=== PATIENT | female | born 2000 | race Caucasian/White ===

== ENCOUNTER 2020-08-17 04:16 | Emergency (ER) | payer OTHER ==
[~2020-08-17] VITALS: Ht 157.5 cm; Wt 56.9 kg
--- NOTE | 2020-08-17 04:32 | PHYS DOC ---
General Adult HPI: HPI: ".. I started having some vaginal bleeding after sex two days ago... it now more.. and I am having cramping.. and some back pain with it.. it is my lst ... I have not seen a Ob /rebar worker yet... they will not send you at [facility].. 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 Patient had approximately 5 tests at home and they were all positive. Patient is taking vitamins. Bleeding started after sexu al intercourse 2 days ago. Bleeding has increased to approximately 3-4 pads a day. Cramping and back pain is also increased. Patient denies any trauma other than coitus. No history of coagulopathy with her family members. This is her first . Has had approximately 10 lifetime sex partners, no history of STDs. No recent travel. No specific ill contacts. No history immunosuppression. (JIHAN SPIVEY MD) Review of Systems: Review of Systems: Constitutional: Denies fever or chills Eyes: Denies change in visual acuity HENT: Denies nasal congestion or sore throat Respiratory: Denies cough or shortness of breath Cardiovascular: Denies chest pain or edema GI: Complains of abdomen abdominal pain, nausea, vaginal bleeding, cramping. Denies vomiting, bloody stools or diarrhea : Denies dysuria Musculoskeletal: Complains of low back pain . Integument: Denies rash Neurologic: Denies headache, focal weakness or sensory changes Endocrine: Denies polyuria or polydipsia Lymphatic: Denies swollen glands Psychiatric: Denies depression or anxiety (JIHAN SPIVEY MD) Family History: Family History: Noncontributory (JIHAN SPIVEY MD) Current Medications: Current Meds: vitamins (JIHAN SPIVEY MD) Allergies: Allergies: No known drug allergies (JIHAN SPIVEY MD) Physical Exam: PE: Constitutional: Well developed, well nourished, moderate acute distress, non- toxic appearance. [] HENT: Normocephalic, atraumatic, bilateral external ears normal, oropharynx moist, no oral exudates, nose normal. [] Eyes: PERRLA, EOMI, conjunctiva normal, no discharge. [] Neck: Normal range of motion, no tenderness, supple, no stridor. [] Cardiovascular:Heart rate regular rhythm, no murmur [] Lungs & Thorax: Bilateral breath sounds equal apex on auscultation [] Abdomen: Bowel sounds decreased, soft, no tenderness, no masses, no pulsatile masses. [] Os closed. Bleeding from Os. No adnexal tenderness. Mild cervical motion tenderness. Rectal hard stool nontender, no gross blood. Mild rebound to suprapubic area. Skin: Warm, dry, no erythema, no rash. [] Back: No tenderness, no CVA tenderness. [] Extremities: No tenderness, no cyanosis, no clubbing, ROM intact, no edema. Old scars on knees. No psoas sign. Neurologic: Alert and oriented X 3, normal motor function, normal sensory function, no focal deficits noted. DTRs +2 patella and brachial Psychologic: Affect anxious, judgement normal, mood normal. [] (JIHAN SPIVEY MD) EKG: EKG: [] (JIHAN SPIVEY MD) Radiology/Procedures: Radiology/Procedures: US pending at shift change[] (JIHAN SPIVEY MD) Radiology/Procedures: US PRE HYSTEROSALPINGOGRAM History: Reason: bleeding, pain, / Spl. Instructions: / History: Comparison: None. Technique: Grayscale and color Doppler imaging of the pelvis was performed using transabdominal and transvaginal technique. Findings: The uterus measures 8.3 x 5.1 x 5.6 cm. Irregular gestational sac within the upper endometrial canal measures 1.54 cm. Adjustment gestational age by ultrasound 6 weeks 2 days. Yolk sac and pole are not identified. Hypoechoic area adjacent to the gestational sac measures 0.6 x 1.0 x 0.6 cm. Right ovary measures 3.2 x 2.5 x 2.2 cm. Left ovary not identified due to positioning and overlying structures. Normal Doppler flow to the ovaries bilaterally. No adnexal masses are seen. IMPRESSION: 1. Irregular intrauterine gestational sac. No pole is identified. Findings are suspicious for failed early giving LMP although not diagnostic. Recommend further clinical evaluation and short-term ultrasound follow-up with serial beta-hCG testing. 2. Hypoechoic region adjacent to the gestational sac, may represent subchorionic hematoma. (ALLEN WALKER MD) Heart Score: Risk Factors: Risk Factors: DM, Current or recent (<one month) smoker, HTN, HLP, family history of CAD, obesity. Risk Scores: Score 0 - 3: 2.5% MACE over next 6 weeks - Discharge Home Score 4 - 6: 20.3% MACE over next 6 weeks - Admit for Clinical Observation Score 7 - 10: 72.7% MACE over next 6 weeks - Early Invasive Strategies (JIHAN SPIVEY MD) Course & Med Decision Making: Course & Med Decision Making Pertinent Labs and Imaging studies reviewed. (See chart for details) Pt. advised must follow up pending cultures taken during pelvic exam. Pt endorsed to Dr. Walker at shift change, she will make disposition of pt. Impression: 1. Abdomen Armendariz 2. Threatened 3. Blood type A positive 4. Beta hCG =3056 (JIHAN SPIVEY MD) Course & Med Decision Making Accepted patient care at shift change, pending ultrasound. Discussed plan with patient, she agrees to plan. Ultrasound shows gestational sac without pole, irregular contour. Discussed with patient possible early miscarriage and discussed follow-up for r epeat beta hCG and pelvic rest. (ALLEN WALKER MD) Dragon Disclaimer: Dragon Disclaimer: This electronic medical record was generated, in whole or in part, using a voice recognition dictation system. (JIHAN SPIVEY MD) Departure Departure: Impression: Primary Impression: Threatened miscarriage in early Disposition: 01 DC HOME SELF CARE/HOMELESS Condition: STABLE Referrals: PCP,NO (PCP) Patient Instructions: Vaginal Bleeding During , First Trimester Additional Instructions: Call your CAR USHER today to schedule follow-up appointment for repeat beta hCG testing. Pelvic rest (nothing in vagina) until cleared by CAR USHER. May resume normal activities but no heavy lifting. Dragon Disclaimer This chart was dictated in whole or in part using Voice Recognition software in a busy, high-work load, and often noisy Emergency Department environment. It may contain unintended and wholly unrecognized errors or omissions. (JIHAN SPIVEY MD) Dragon Disclaimer This chart was dictated in whole or in part using Voice Recognition software in a busy, high-work load, and often noisy Emergency Department environment. It may contain unintended and wholly unrecognized errors or omissions. (JIHAN SPIVEY MD) Dragon Disclaimer This chart was dictated in whole or in part using Voice Recognition software in a busy, high-work load, and often noisy Emergency Department environment. It may contain unintended and wholly unrecognized errors or omissions. (JIHAN SPIVEY MD) JIHAN SPIVEY MD Aug 17, 2020 04:31 ALLEN WALKER MD Aug 17, 2020 08:43
[2020-08-17] MEDS ORDERED: ONDANSETRON PF 4 MG/2 ML VIAL. IVP ONE (04:45)
[2020-08-17] MEDS ORDERED: FAMOTIDINE 20 MG/2 ML VIAL IVP ONE (04:45)
[2020-08-17] MEDS ORDERED: IV RINGERS SOLUTION,LACTATED 1,000 ML IV SCH (04:45)
[2020-08-17 05:33] LABS: BASO # 0.1 x10^3/uL (0.0-0.2); BASO % 1 % (0-3); EOS # 0.3 x10^3/uL (0.0-0.7); EOS % 2 % (0-3); HEMATOCRIT 40.4 % (36.0-47.0); HEMOGLOBIN 13.7 g/dL (12.0-15.5); LYMPH # 2.6 x10^3/uL (1.0-4.8); LYMPH % 21 % (24-48); MEAN CORPUSCULAR HEMOGLOBIN 30 pg (25-35); MEAN CORPUSCULAR HGB CONC 34 g/dL (31-37); MEAN CORPUSCULAR VOLUME 89 fL (79-100); MONO # 0.8 x10^3/uL (0.0-1.1); MONO % 6 % (0-9); NEUT # 8.7 x10^3uL (1.8-7.7); NEUT % 70 % (31-73); PLATELET COUNT 266 x10^3/uL (140-400); RED BLOOD COUNT 4.55 x10^6/uL (3.50-5.40); RED CELL DISTRIBUTION WIDTH 12.4 % (11.5-14.5); WHITE BLOOD COUNT 12.4 x10^3/uL (4.0-11.0)
[2020-08-17 05:49] LABS: CREATININE 0.7 mg/dL (0.6-1.0); GFR 106.7; POTASSIUM 3.6 mmol/L (3.5-5.1)
[2020-08-17 05:49] LABS: BACTERIA,URINE 0 /HPF (0-FEW); BILIRUBIN,URINE NEG (NEG); CLARITY,URINE CLEAR; COLOR,URINE YELLOW; GLUCOSE,URINE NEG (NEG); NITRITE,URINE NEG (NEG); SQUAMOUS EPITHELIAL CELL,UR OCC /LPF; UROBILINOGEN,URINE 0.2 mg/dL (0.2 mg/dL); WBC,URINE OCC /HPF (0-4)
[2020-08-17 05:50] LABS: BARBITURATES NEG (NEG); BENZODIAZEPINES NEG (NEG); CANNABINOIDS NEG (NEG); COCAINE NEG (NEG); METHADONE NEG (NEG); OPIATES NEG (NEG); PHENCYCLIDINE NEG (NEG)
[2020-08-17 05:56] LABS: ALBUMIN 3.9 g/dL (3.4-5.0); DIRECT BILIRUBIN 0.1 mg/dL (0.0-0.2); TOTAL BILIRUBIN 0.3 mg/dL (0.2-1.0); TOTAL PROTEIN 7.8 g/dL (6.4-8.2)
[2020-08-17 06:01] LABS: AMPHETAMINE/METHAMPHETAMINE NEG (NEG)
[2020-08-17] MEDS ORDERED: ACETAMINOPHEN 500 MG TABLET PO ONE (07:00)
--- NOTE | 2020-08-17 08:22 | RAD ---
US PRE HYSTEROSALPINGOGRAM History: Reason: bleeding, pain, / Spl. Instructions: / History: Comparison: None. Technique: Grayscale and color Doppler imaging of the pelvis was performed using transabdominal and t ransvaginal technique. Findings: The uterus measures 8.3 x 5.1 x 5.6 cm. Irregular gestational sac within the upper endometrial canal measures 1.54 cm. Adjustment gestational age by ultrasound 6 weeks 2 days. Yolk sac and pole are not identified. Hypoechoic area adjacent to the gestational sac measures 0.6 x 1.0 x 0.6 cm. Right ovary measures 3.2 x 2.5 x 2.2 cm. Left ovary not identified due to positioning and overlying structures. Normal Doppler flow to the ovaries bilaterally. No adnexal masses are seen. IMPRESSION: 1. Irregular intrauterine gestational sac. No pole is identified. Findings are suspicious for failed early giving LMP although not diagnostic. Recommend further clinical evaluation and short-term ultrasound follow-up with serial beta-hCG testing. 2. Hypoechoic region adjacent to the gestational sac, may represent subchorionic hematoma. Electronically signed by: Wilfred Loza DO (08/17/2020 8:20 AM) [id number]
[2020-08-17 09:00] VITALS: BP 105/54
[2020-08-18 20:13] LABS: CHLAMYDIA PROBE Negative (Negative)
== END 2020-08-17 09:05 | disposition home or self-care (01) ==
LOC: ER 04:16
DX: O20.0 Threatened abortion (principal); Z3A.10 10 weeks gestation of pregnancy
CPT/HCPCS: 36415; 76801; 80048; 80076; 80307; 81001; 84443; 84702; 85025; 85610; 85730; 86592; 86705; 86709; 86803; 86900; 86901; 87340; 87491; 87591; 96360; 99284; J7120; Q0111